=== PATIENT | male | born 1965 | race Caucasian/White ===

== ENCOUNTER 2018-07-06 17:30 | Outpatient (RCR) | payer BC, SELFPAY ==
--- NOTE | 2018-06-10 17:06 | HMH.PTOPEV ---
PT Outpatient Evaluation Rehab PT Outpatient Evaluation Start: 06/10/18 16:51 Freq: Status: Active Protocol: Document 06/10/18 16:52 MICHAEL (Rec: 06/10/18 17:06 MICHAEL [id number]) Electronically Signed By Juliano Cameron PT 06/10/18 16:52 Outpatient Therapy Subjective History Subjective History THis is the initial Physical Therapy evaluation for Dakota Santiago. Pt is a 53 y/o male referred to PT for R achilles pain. Pt reports he had surgery in Jul to remove bone spur on R posterior calcaneus. Pt reports detachment of achilles , resection of bone spur and re-attachment of tendon. Pt reports 1 month casted and two months CAM walking boot. Pt reports continued pain in heel since being out of boot. Chief Complaint Pain Stiff Swelling Symptom Type Ache Throb Sharp Burning Symptoms Relieved By Rest/Positioning Symptoms Aggravated By Standing Physical Activity Walking Prior Functional Limitations None Current Functional Limitations Housework Standing Recreation Activity Walking Stairs Symptom Description Intermittent Level of pain today (0-10) 0 Pain scale - at its best (0-10) 0 Pain scale - at its worst (0-10) 5 Ankle/Foot Eval Gait Observation General Gait Pattern Observation No Deviations/Normal Assistive Device Ambulation Assistive Device None Palpation Tenderness right Ankle/Foot Palpation Findings Tenderness Ankle/Foot Palpation Overall Comment TTP 1/4 at bo's insertion ATF TTP negative PTF TTP negative CF TTP negative Deltoid ligament TTP negative ROM bilateral Ankle/Foot ROM Reason Not Measured Within Functional Limits Special Tests Ankle Anterior Drawer Test Negative Left Negative Right Ankle Eversion Test Negative Left Negative Right Talar Tilt Test Negative Left Negative Right
== END 2018-07-06 17:31 | disposition home or self-care (01) ==
LOC: PT 17:30
PROVIDERS: PCP Internal Medicine Adolescent Medicine; Visit Provider Internal Medicine Adolescent Medicine
DX: M25.571 Pain in right ankle and joints of right foot (principal)
CPT/HCPCS: 97010; 97014; 97110; 97140; 97163; G0283

== ENCOUNTER → 2019-05-18 07:09 | Outpatient (CLI) | payer BC, SELFPAY ==
[2019-05-18 09:46] LABS: Alanine Aminotransferase 38 U/L (12-78); Albumin Level 3.7 gm/dL (3.4-5.0); Albumin/Globulin Ratio 1.2 (1.1-1.8); Alkaline Phosphatase 47 U/L (46-116); Anion Gap 11.4 mEq/L (5-15); Aspartate Amino Transferase 16 U/L (15-37); Bilirubin,Total 0.6 mg/dL (0.2-1.0); Blood Urea Nitrogen 20 mg/dL (7-18); Calcium 9.3 mg/dL (8.5-10.1); Carbon Dioxide 32 mmol/L (21.0-32.0); Chloride 103 mmol/L (98-107); Chol/HDL Ratio 4.6 (1-3.5); Cholesterol 176 mg/dL (140-200); Creatinine,Serum 1.01 mg/dL (0.70-1.30); Estimated Glomerular Filt Rate 77 ml/min (>60); GFR (African American) 93 ML/MIN (>60); Globulin 3.2 gm/dl (1.3-3.2); Glucose 98 mg/dL (74-106); HDL Cholesterol 38 mg/dL (27-67); LDL Cholesterol 120 mg/dL (0-130); Potassium 4.4 mmoL/L (3.5-5.1); Sodium 142 mmol/L (136-145); Total Protein,Serum 6.9 gm/dL (6.4-8.2); Triglycerides 88 mg/dL (30-200); VLDL Cholesterol 18 mg/dL (0-40)
== END ==
PROVIDERS: Visit Provider Internal Medicine Adolescent Medicine
DX: I10 Essential (primary) hypertension (principal)
CPT/HCPCS: 36415; 80053; 80061

== ENCOUNTER → 2019-08-18 08:12 | Outpatient (POV) | payer BC, SELFPAY | PROVIDERS: Visit Provider Dentist | DX: Z00.00 Encounter for general adult medical examination without abnormal findings (principal) ==

== ENCOUNTER → 2019-12-22 07:20 | Outpatient (CLI) | payer SELFPAY ==
--- NOTE | 2019-12-22 08:00 | CT_ITS ---
PROCEDURE: CT HEART W CALCIUM SCORE CLINICAL HISTORY: SCREENING Family history of heart disease COMPARISON: No exams were available for comparison TECHNIQUE: Axial images obtained with sagittal and coronal reformats. All CT scans at the facility use one or more dose reduction, viz: automated exposure control, ma/kV adjustment per patient size (including targeted exams where dose is matched to indication, i.e. head), or iterative reconstruction technique. FINDINGS: Coronary artery calcium score is 6 indicating minimal calcific plaque burden with low cardiovascular disease risk. Incidental note made partially calcified mediastinal and hilar lymph nodes with elevated left hemidiaphragm and minimal thickening of the pericardium. Atelectatic or fibrotic changes are present in the lung bases IMPRESSION: Minimal plaque burden with low cardiovascular disease risk Dictated by: Lance Nance MD 12/22/2019 15:33 Electronically signed by Lance Nance MD in [place] 12/22/2019 15:33
== END ==
PROVIDERS: PCP Internal Medicine Adolescent Medicine; Visit Provider Internal Medicine Cardiovascular Disease
DX: Z13.6 Encounter for screening for cardiovascular disorders (principal)
CPT/HCPCS: 75571

== ENCOUNTER → 2020-05-22 08:49 | Outpatient (CLI) | payer BC, SELFPAY ==
[2020-05-23 13:16] LABS: Covid-19 Nasal PCR Sendout Lex Not Detected
== END ==
PROVIDERS: Visit Provider Internal Medicine Adolescent Medicine
DX: Z20.828 Contact with and (suspected) exposure to other viral communicable diseases (principal)
CPT/HCPCS: U0004

== ENCOUNTER → 2020-06-22 15:29 | Outpatient (CLI) | payer BC, SELFPAY ==
[2020-06-22 16:06] LABS: Basophils # 0.1 K/mm3 (0-0.2); Eosinophils # 0.4 K/mm3 (0.0-0.4); Eosinophils % 4.4 % (0.1-12.0); Hematocrit 44.6 % (42.0-52.0); Hemoglobin 15.3 g/dL (14.1-18.0); Lymphocytes # 3.2 K/mm3 (0.7-4.5); Mean Corpuscular HGB Conc 34.3 g/dL (31.8-35.4); Mean Corpuscular Hemoglobin 29.8 pg (27.0-31.2); Mean Corpuscular Volume 86.9 fl (80-94); Mean Platelet Volume 7.6 fl (7.4-10.4); Monocytes # 0.5 K/mm3 (0.1-1.0); Monocytes % 5.4 % (1.7-9.3); Neutrophils # 5.4 K/mm3 (1.8-7.8); Neutrophils % 56.2 % (37.0-80.0); Platelet Count 224 K/mm3 (142-424); Red Blood Count 5.14 M/mm3 (4.60-6.20); Red Cell Distribution Width 14.5 % (11.5-17.5); White Blood Count 9.7 K/mm3 (4.8-10.8)
[2020-06-22 17:07] LABS: Alanine Aminotransferase 33 U/L (12-78); Albumin Level 4.4 g/dl (3.5-5.0); Albumin/Globulin Ratio 1.4 (1.1-1.8); Alkaline Phosphatase 58 U/L (38-126); Aspartate Amino Transferase 36 U/L (17-59); Bilirubin,Total 0.3 mg/dl (0.2-1.3); Blood Urea Nitrogen 18 mg/dl (9-20); Calcium 9.6 mg/dl (8.4-10.2); Carbon Dioxide 33 mmol/L (22.0-30.0); Chloride 98 mmol/L (98-107); Chol/HDL Ratio 4.6 (1-3.5); Cholesterol 198 mg/dl (140-200); Estimated Glomerular Filt Rate 69 ml/min (>60); GFR (African American) 84 ML/MIN (>60); Globulin 3.2 g/dL (1.3-3.2); Glucose 106 mg/dl (74-100); HDL Cholesterol 43 mg/dl (40-60); Sodium 141 mmol/L (136-145); Total Protein,Serum 7.6 g/dl (6.3-8.2); Triglycerides 281 mg/dl (30-150); VLDL Cholesterol 56 mg/dL (0-40)
[2020-06-22 17:17] LABS: Direct LDL Cholesterol 118.79 mg/dL (100-129)
[2020-06-22 17:49] LABS: Hemoglobin A1C 5.6 % (4.0-6.0)
== END ==
PROVIDERS: Visit Provider Internal Medicine Adolescent Medicine
DX: I10 Essential (primary) hypertension (principal)
CPT/HCPCS: 36415; 80053; 80061; 83036; 85025

== ENCOUNTER → 2020-11-27 08:04 | Outpatient (POV) | payer BC, SELFPAY | PROVIDERS: Visit Provider Dermatology | DX: Z00.00 Encounter for general adult medical examination without abnormal findings (principal) ==

== ENCOUNTER → 2021-05-29 07:01 | Outpatient (CLI) | payer BC, SELFPAY ==
[2021-05-29 07:56] LABS: Alanine Aminotransferase 32 U/L (12-78); Albumin Level 4.3 g/dl (3.5-5.0); Albumin/Globulin Ratio 1.5 (1.1-1.8); Alkaline Phosphatase 55 U/L (38-126); Anion Gap 12.9 mEq/L (5-15); Aspartate Amino Transferase 32 U/L (17-59); Bilirubin,Total 0.6 mg/dl (0.2-1.3); Blood Urea Nitrogen 21 mg/dl (9-20); Calcium 9.3 mg/dl (8.4-10.2); Carbon Dioxide 32 mmol/L (22.0-30.0); Chloride 103 mmol/L (98-107); Chol/HDL Ratio 4.7 (1-3.5); Cholesterol 179 mg/dl (140-200); Estimated Glomerular Filt Rate 100 ml/min (>60); GFR (African American) 121 ML/MIN (>60); Globulin 2.8 g/dL (1.3-3.2); Glucose 98 mg/dl (74-100); HDL Cholesterol 38 mg/dl (40-60); Potassium 4.9 mmoL/L (3.5-5.1); Sodium 143 mmol/L (136-145); Total Protein,Serum 7.1 g/dl (6.3-8.2); Triglycerides 96 mg/dl (30-150); VLDL Cholesterol 19 mg/dL (0-40)
[2021-05-29 08:07] LABS: Direct LDL Cholesterol 111.89 mg/dL (100-129)
[2021-05-29 08:08] LABS: Basophils # 0.1 K/mm3 (0-0.2); Eosinophils # 0.3 K/mm3 (0.0-0.4); Eosinophils % 4.2 % (0.1-12.0); Hematocrit 44.1 % (42.0-52.0); Hemoglobin 14.7 g/dL (14.1-18.0); Lymphocytes # 2.5 K/mm3 (0.7-4.5); Lymphocytes % 31.2 % (10-50); Mean Corpuscular HGB Conc 33.3 g/dL (31.8-35.4); Mean Corpuscular Hemoglobin 28.2 pg (27.0-31.2); Mean Corpuscular Volume 84.7 fl (80-94); Mean Platelet Volume 7.7 fl (7.4-10.4); Monocytes # 0.5 K/mm3 (0.1-1.0); Monocytes % 6.2 % (1.7-9.3); Neutrophils # 4.6 K/mm3 (1.8-7.8); Neutrophils % 57.3 % (37.0-80.0); Platelet Count 212 K/mm3 (142-424); Red Cell Distribution Width 14.5 % (11.5-17.5)
[2021-05-29 08:23] LABS: Coronavirus 19 IgG Antibody Negative (Negative); Coronavirus 19 IgM Antibody Negative (Negative)
[2021-05-29 11:42] LABS: Hemoglobin A1C 5.7 % (4.0-6.0)
== END ==
PROVIDERS: Visit Provider Internal Medicine Adolescent Medicine
DX: Z00.00 Encounter for general adult medical examination without abnormal findings (principal); Z20.822 Contact with and (suspected) exposure to COVID-19
CPT/HCPCS: 36415; 80053; 80061; 83036; 85025; 86328

== ENCOUNTER 2021-06-30 13:19 | Emergency (ER) | payer BC, SELFPAY ==
[2021-06-30 14:20] VITALS: BP 132/82; PULSE 86; RESP 17; TEMP 37; O2SAT 98; BMI 43.4
[2021-06-30 14:59] VITALS: BP 132/82; PULSE 86; RESP 17; TEMP 37; O2SAT 98
--- NOTE | 2021-06-30 14:59 | HMH.EDUTC ---
[facility] [place] [place] Disposition Clinical Impression: COVID-19 virus test result unknown Disposition: Home, Self-Care Condition on Discharge: Good Instructions: How to Care for Someone with COVID-19, Preventing the Spread of Coronavirus Discharge Instructions Additional Instructions: covid swab was sent to lab, call later today for results. self isolate until test results are known to be negative Referrals: Jose David Easley MD [Primary Care Provider] - Time of Disposition: 15:01 Medical Decision Making - Yahir Inquiry Pt receiving controlled substance: No Vital Signs: 06/30/21 14:20 Temperature 98.6 F Temperature Source Oral Pulse Rate [Right Brachial] 86 Respiratory Rate 17 Blood Pressure [Right Arm] 132/82 Blood Pressure Mean [Right Arm] 98 Blood Pressure Source [Right Arm] Automatic Cuff Blood Pressure Position [Right Arm] Sitting 02 Sat by Pulse Oximetry 98 Oxygen Delivery Method Room Air Orders (Tests/Meds): ORDERS Category Date Time Status Covid-19 Nasal PCR ([facility]) Routine Lab 06/30/21 14:[address] [facility] [place] HPI - General Chief complaint: Urgent Treatment Center Stated complaint: covid test Time Seen by Provider: 06/30/21 15:00 Mode of Arrival: Ambulatory Source of Information: Patient Limitations: No Limitations Description of Symptoms (Recalled from Triage Doc. by RN): COVID TEST, DENIES SYMPTOMS HEENT Symptoms (Recalled from RN notes): No Resp Symptoms (Recalled from RN notes): No Skin Symptoms (Recalled from RN notes): No MS Symptoms (Recalled from RN notes): No Functional Status (Recalled from RN notes): WNL - History of Present Illness Provider Complaint: 56 yr old male presents for covid test. has symptoms pt denies symptoms - Related Data Home Medications Medication Instructions Recorded Confirmed Aspirin 81 mg PO DAILY 09/05/18 09/04/20 Losartan/Hydrochlorothiazide 1 each PO DAILY 09/05/18 09/04/20 [Losartan-Hctz 100-25 mg Tab] Allergies Allergy/AdvReac Type Severity Reaction Status Date / Time Penicillins Allergy Unknown Verified 09/04/20 15:20 - Worker's Comp Is this a Worker's Comp case?: No [facility] History - Hepatitis A Screen Drug use history?: No High risk sexual behaviors?: No History of sexually transmitted infection?: No Currently employed?: No Childcare worker?: No Do you have indoor plumbing?: Yes Do you have electricity?: Yes Attestation statement:: This patient has been screened for Hepatitis A risk factors. I have reviewed the patient's past medical history: Yes Medical History: Reports:: Hypertension Denies:: Diabetes Mellitus Type 1, Diabetes Mellitus Type 2 Amputation: No Fractures: No Comment: Bilateral Plantar Fascia Release: Left 4 years ago, Right 2 Years ago - Social History Smoking Status: Never smoker Alcohol Intake: never Alcohol Intake Frequency:: other Occupational Status: employed Family Hx:: Diabetes, Hypertension, Hyperlipidemia ROS Obtained: Yes Systems reviewed as appropriate & no additional complaints - Constitutional Constitutional: Reports system reviewed and no additional complaints, except as docu, Denies fever(s) - Eyes Eyes: Reports system reviewed and no additional complaints, except as docu, Denies change in vision - ENT Ears, Nose, Mouth, and Throat: Reports system reviewed and no additional complaints, except as docu, Denies sore throat - Cardiovascular Cardiovascular: Reports system reviewed and no additional complaints, except as docu, Denies chest pain at rest - Respiratory Respiratory: Reports system reviewed and no additional complaints, except as docu, Denies change in phlegm color - Gastrointestinal Gastrointestingal: Reports: system reviewed and no additional complaints, except as docu. Denies: abdominal pain - Genitourinary Male Genitourinary: Reports system reviewed and no additional complaints, except as docu - Musculoskeletal Musculoskeletal: Reports system reviewed and no additi
== END 2021-06-30 15:06 | disposition home or self-care (01) ==
PROVIDERS: Emergency Provider Nurse Practitioner Family; PCP Internal Medicine Adolescent Medicine
DX: Z20.822 Contact with and (suspected) exposure to COVID-19 (principal); I10 Essential (primary) hypertension; Z88.0 Allergy status to penicillin
CPT/HCPCS: 99202; G0463; U0003

== ENCOUNTER → 2022-11-07 13:58 | Outpatient (CLI) | payer BC, SELFPAY | PROVIDERS: PCP Internal Medicine Adolescent Medicine; Visit Provider Specialist | DX: G47.33 Obstructive sleep apnea (adult) (pediatric) (principal); R06.83 Snoring | CPT/HCPCS: G0399 ==

== ENCOUNTER → 2022-12-04 13:24 | Outpatient (CLI) | payer BC, OTHER, SELFPAY | PROVIDERS: PCP Internal Medicine Adolescent Medicine; Visit Provider Specialist | DX: G47.33 Obstructive sleep apnea (adult) (pediatric) (principal) | CPT/HCPCS: 94762 ==

== ENCOUNTER → 2023-02-18 15:55 | Outpatient (CLI) | payer BC, OTHER, SELFPAY ==
--- NOTE | 2023-02-18 15:59 | MR_ITS ---
PROCEDURE INFORMATION: Exam: MR Cervical Spine Without Contrast Exam date and time: 02/18/2023 4:05 PM Age: 57 years old Clinical indication: Neck pain; Additional info: Cervical radiculopathy. Left shoulder an neck pain x 2 weeks. TECHNIQUE: Imaging protocol: Magnetic resonance imaging of the cervical spine without contrast. COMPARISON: CT HEART W CALCIUM SCORE 12/22/2019 7:42 AM FINDINGS: Bones/joints: No fracture. Normal alignment. Spinal cord: Normal signal. C2-C3: Central protrusion at C2-C3 with widely patent neural foramina. C3-C4: Central protrusion at C3-C4 with widely patent neural foramina. C4-C5: No significant disc bulge or herniation. No severe spinal canal stenosis. No significant neural foraminal narrowing. C5-C6: Broad-based disc bulge at C5-C6 abutting the ventral thecal sac causing mild canal and bilateral foraminal narrowing. C6-C7: Broad-based disc bulge at C6-C7 mildly eccentric to the right causing mild right greater than left lateral recess and foraminal narrowing. C7-T1: Disc bulge at C7-T1 with right paracentral protrusion abutting the ventral thecal sac causing high-grade stenosis of the right lateral recess and moderate stenosis of the neural foramen. Soft tissues: Unremarkable. Vasculature: Expected flow voids in the vertebral arteries. IMPRESSION: Multilevel degenerative changes most prominent at C5-C6 and C7-T1 as described above.
== END ==
PROVIDERS: PCP Internal Medicine Adolescent Medicine
DX: M54.12 Radiculopathy, cervical region (principal)
CPT/HCPCS: 72141; 76376

== ENCOUNTER → 2023-04-14 12:39 | Outpatient (CLI) | payer BC, OTHER, SELFPAY ==
--- NOTE | 2023-04-14 | CA_ITS ---
FINAL REPORT TECHNIQUE: Compression lake scale and Doppler evaluation CLINICAL HISTORY: SWELLING X 2 WEEKS WITHOUT INJURY, OBESITY FINDINGS: Femoral and popliteal veins show normal compressibility and flow. Visualized portion of the calf veins are patent by Doppler exam. IMPRESSION: No evidence of right lower extremity deep venous thrombosis Reviewed, Interpreted and Dictated by Melissa Álvarez MD Transcribed by Aurelia Gomez Authenticated and [facility]
== END ==
PROVIDERS: PCP Internal Medicine Adolescent Medicine; Visit Provider Internal Medicine Adolescent Medicine
DX: R60.0 Localized edema (principal)
CPT/HCPCS: 93971

== ENCOUNTER → 2023-06-24 21:27 | Outpatient (CLI) | payer BC, OTHER, SELFPAY | PROVIDERS: PCP Internal Medicine Adolescent Medicine; Visit Provider Nurse Practitioner Family | DX: L60.0 Ingrowing nail (principal); B96.5 Pseudomonas (aeruginosa) (mallei) (pseudomallei) as the cause of diseases classified elsewhere | CPT/HCPCS: 87070; 87077; 87186; 87205 ==

== ENCOUNTER 2023-07-07 16:00 | Outpatient (RCR) | payer BC, OTHER, SELFPAY | END 2023-07-07 16:05 | disposition home or self-care (01) | LOC: PT 16:00 | PROVIDERS: PCP Internal Medicine Adolescent Medicine; Visit Provider Student in an Organized Health Care Education/Training Program | DX: M54.2 Cervicalgia (principal); M54.12 Radiculopathy, cervical region | CPT/HCPCS: 97010; 97014; 97035; 97110; 97112; 97140; 97163; 97164; 97530; G0283 ==

== ENCOUNTER → 2024-03-07 09:14 | Outpatient (CLI) | payer BC, OTHER, SELFPAY | LOC: SL 09:15 | PROVIDERS: PCP Internal Medicine Adolescent Medicine; Visit Provider Specialist | DX: G47.33 Obstructive sleep apnea (adult) (pediatric) (principal) | CPT/HCPCS: 94762 ==

== ENCOUNTER 2024-03-21 15:03 | Outpatient (CLI) | payer BC, OTHER, SELFPAY ==
[2024-03-21 16:22] LABS: Prostate Specific Ag Screen 7.5 ng/ml (0.0-4.0)
[2024-03-23 14:13] LABS: PSA, Free 1.17 ng/mL; Prostate Specific Ag 7.1 ng/mL (0.0-4.0)
== END 2024-03-21 23:59 | disposition home or self-care (01) ==
LOC: LAB 15:03
PROVIDERS: PCP Internal Medicine Adolescent Medicine; Visit Provider Urology
DX: R97.20 Elevated prostate specific antigen [PSA] (principal); N40.2 Nodular prostate without lower urinary tract symptoms; Z12.5 Encounter for screening for malignant neoplasm of prostate
CPT/HCPCS: 36415; 84153; 84154; G0103

== ENCOUNTER 2024-04-08 08:35 | Day surgery (SDC) | payer BC, OTHER, SELFPAY ==
[2024-04-06 11:47] VITALS: BMI 38.7
--- NOTE | 2024-04-08 08:49 | HMH.SCOPE ---
Procedure: Date: 04/08/24 Patient Date of :: 1965 Procedure Performed:: Total colonoscopy with polypectomy using biopsy and cold snare Indications:: Patient is a 59-year-old male who presents for scheduled screening colonoscopy. He has a family history of colon cancer in his grandfather. He states that he has had 3 prior colonoscopies. I am unable to see any record of any previous colonoscopy at this facility at this time. He believes the last 1 was at [facility] with Dr. Thompson. 5-year follow-up was recommended. . Performing Provider:: Brandon Lala MD Referring Provider:: Jose David Easley MD . Sedation:: MAC sedation Procedure:: Patient history was obtained and appropriate physical examination was performed. Patient's medications and allergies were reviewed. Informed consent was obtained after explaining the benefits, alternatives, and risks of the procedure including, but not limited to, bleeding, perforation, missed lesions, and adverse reaction to anesthesia medications. Patient was transported to endoscopy procedure room. Patient was connected to monitoring devices. Throughout the procedure the patient's blood pressure, pulse, and oxygen saturations were monitored continuously. Patient identification and planned procedure were verified by the staff. Patient was positioned in lateral decubitus position. Digital anorectal exam was performed. Variable stiffness Olympus colonoscope was inserted and advanced under direct visualization to the cecum. Adequacy of the colonic preparation was noted. The colonoscope was advanced a short distance into the ileocecal valve. The colonoscope was then slowly withdrawn while carefully examining the color, texture, anatomy, and integrity of the mucosoa circumferentially. Within the rectum retroflexion was performed. Colonoscope was then withdrawn. Impression: Colonic preparation was fair. High-volume trans colonoscopic irrigation and suctioning was performed which allowed for decent visualization however there was some vegetable matter and some stool which was unable to be fully cleared. Within the cecum there was a small diminutive adenomatous polyp removed in a piecemeal fashion using cold biopsy forceps. There was significant pandiverticulosis with multiple larg[place] diverticuli particularly in the sigmoid colon. In the descending colon there was a possible subtle ridge polyp. This was removed with cold cutting snare. This may be merely prolapsed polyp. Retroflexion within the rectum revealed findings of possible rectocele versus communicating large diverticulum in the distal rectum. Colonoscope was withdrawn. . Findings:: Fair prep Significant pandiverticulosis Diminutive cecal polyp Subtle descending polyp Possible rectocele . Recommendations:: Repeat colonoscopy pending pathology. I will see if I can obtain previous records. Likely repeat colonoscopy 3 years given family history, polyps, suboptimal preparation. Complications:: None immediately apparent Estimated blood obtained (mL): 1 Colonoscopy Component Colonoscopy Component Was a colonoscopy performed during today's procedure?: Yes Recommended follow up colonoscopy of at least 10 years?: No If no, follow up colonoscopy recommended in ___ years?: 3 Reason for not recommending >/= 10 yr follow-up interval?: See above
[2024-04-08 08:53] VITALS: BP 109/76; PULSE 85; RESP 18; TEMP 36.4; O2SAT 96
[2024-04-08 09:05] VITALS: O2SAT 99
[2024-04-08 09:05] LABS: POC Glucose,Bedside 91 (70-110)
--- NOTE | 2024-04-08 09:07 | P.PNANES_ITS ---
[facility] Disclaimer: The information contained in this section may have been updated after the patient was seen, as this information can be updated by other users. Medical History Enlarged prostate History of trigger finger History of COVID-19 Diabetes mellitus, type 2 Allergies Hypertension EVELIO (obstructive sleep apnea) Surgical History History of carpal tunnel surgery History of ankle surgery Family History Other Cancer Coronary artery disease Diabetes Social History Smoking Status: Former smoker alcohol intake: never substance use type: denies use current occupational status: employed Travel in the last 8 weeks: None household members: spouse housing: house marital status: [facility] Anesthesia Checklist Patient Identification Patient Identification: Arm Band Structural Data Admitted From: Home Planned Operative Procedure/s: Colonoscopy Consent for Planned Operative Procedure(s) Verified: Yes Verified Documents: Surgical Consent and History and Physical NPO Status Verified Time NPO: 00:00 Additional verifications Anesthesia Reactions: No Airway Assessment Mallampati Score:: Class II C-Spine Mobility Assessed: Yes TMJ Mobility Assessed: Yes Dentition: Good Dentition Neurological Assessment Level of Consciousness: Awake, Alert and Appropriate Anesthesia Plan Anesthesia Risk discussed: Yes Anesthesia Plan: Verified ASA Class: III Anesthesia Type: MAC
[2024-04-08 09:55] VITALS: BP 95/66; PULSE 85; RESP 16; TEMP 36.6; O2SAT 94
[2024-04-08 10:05] VITALS: BP 99/63; PULSE 79; RESP 16; O2SAT 93
[2024-04-08 10:15] VITALS: BP 108/76; PULSE 79; RESP 16; O2SAT 94
[2024-04-08 10:20] VITALS: BP 107/78; PULSE 78; RESP 16; O2SAT 94
== END 2024-04-08 10:22 | disposition home or self-care (01) ==
PROVIDERS: PCP Internal Medicine Adolescent Medicine; Visit Provider Surgery
PROC: 0DJD8ZZ Inspection of Lower Intestinal Tract, Via Natural or Artificial Opening Endoscopic (ICD-10-PCS; CPT 45385; principal; 2024-04-08 09:30)
DX: Z12.11 Encounter for screening for malignant neoplasm of colon (principal); Z80.0 Family history of malignant neoplasm of digestive organs; D12.0 Benign neoplasm of cecum; K63.5 Polyp of colon; K57.90 Diverticulosis of intestine, part unspecified, without perforation or abscess without bleeding
CPT/HCPCS: 45385; 45380; 82962; J2704

== ENCOUNTER 2024-10-04 07:02 | Outpatient (CLI) | payer BC, OTHER, SELFPAY ==
[2024-10-04 07:28] LABS: Basophils # 0.1 K/mm3 (0-0.2); Basophils % 0.8 % (0.1-2.0); Eosinophils # 0.3 K/mm3 (0.0-0.4); Eosinophils % 3.3 % (0.1-12.0); Hematocrit 50.3 % (42.0-52.0); Hemoglobin 16.6 g/dL (14.1-18.0); Lymphocytes # 2.2 K/mm3 (0.7-4.5); Lymphocytes % 25.5 % (10-50); Mean Corpuscular HGB Conc 33.1 g/dL (31.8-35.4); Mean Corpuscular Hemoglobin 28.9 pg (27.0-31.2); Mean Corpuscular Volume 87.4 fl (80-94); Mean Platelet Volume 7.6 fl (7.4-10.4); Monocytes # 0.6 K/mm3 (0.1-1.0); Monocytes % 6.7 % (1.7-9.3); Neutrophils # 5.6 K/mm3 (1.8-7.8); Neutrophils % 63.7 % (37.0-80.0); Platelet Count 219 K/mm3 (142-424); Red Blood Count 5.75 M/mm3 (4.60-6.20); Red Cell Distribution Width 14.4 % (11.5-17.5); White Blood Count 8.7 K/mm3 (4.8-10.8)
[2024-10-04 08:19] LABS: Alanine Aminotransferase 35 U/L (12-78); Albumin Level 4.5 g/dl (3.5-5.0); Albumin/Globulin Ratio 1.9 (1.1-1.8); Alkaline Phosphatase 49 U/L (38-126); Anion Gap 12.9 mEq/L (5-15); Aspartate Amino Transferase 27 U/L (17-59); Bilirubin,Total 0.8 mg/dl (0.2-1.3); Blood Urea Nitrogen 17 mg/dl (9-20); Calcium 9.6 mg/dl (8.4-10.2); Carbon Dioxide 28 mmol/L (22.0-30.0); Chloride 102 mmol/L (98-107); Chol/HDL Ratio 3.6 (1-3.5); Cholesterol 190 mg/dl (140-200); Estimated Glomerular Filt Rate 86 ml/min (>60); GFR (African American) 105 ML/MIN (>60); Globulin 2.4 g/dL (1.3-3.2); Glucose 93 mg/dl (74-100); HDL Cholesterol 53 mg/dl (40-60); Potassium 3.9 mmoL/L (3.5-5.1); Sodium 139 mmol/L (136-145); Total Protein,Serum 6.9 g/dl (6.3-8.2); Triglycerides 132 mg/dl (30-150); VLDL Cholesterol 26 mg/dL (0-40)
[2024-10-04 08:30] LABS: Direct LDL Cholesterol 108.76 mg/dL (100-129)
[2024-10-04 08:37] LABS: Free Thyroxine Index 3.5 ug/dL (5.93-13.13); T4 (Thyroxine) 12.4 ug/dl (5.53-11.0); Triiodothryronine (T3) Uptake 28 % (23.5-40.5)
[2024-10-04 08:50] LABS: Thyroid Stimulating Hormone 1.85 uIU/mL (0.465-4.68)
[2024-10-04 09:43] LABS: Hemoglobin A1C 5.2 % (4.0-6.0)
[2024-10-06 08:32] LABS: PSA, Free 0.65 ng/mL
== END 2024-10-04 23:59 | disposition home or self-care (01) ==
LOC: LAB 07:03
PROVIDERS: PCP Internal Medicine Adolescent Medicine; Visit Provider Internal Medicine Adolescent Medicine
DX: R09.A2 Foreign body sensation, throat (principal); C61 Malignant neoplasm of prostate; E11.69 Type 2 diabetes mellitus with other specified complication; R97.20 Elevated prostate specific antigen [PSA]; N40.2 Nodular prostate without lower urinary tract symptoms; Z79.84 Long term (current) use of oral hypoglycemic drugs; Z79.85 Long-term (current) use of injectable non-insulin antidiabetic drugs
CPT/HCPCS: 36415; 80050; 80053; 80061; 83036; 84153; 84154; 84436; 84443; 84479; 85025

== ENCOUNTER 2024-12-08 16:00 | Outpatient (RCR) | payer BC, OTHER, SELFPAY | END 2024-12-08 23:59 | disposition home or self-care (01) | LOC: PT 16:00 | PROVIDERS: Visit Provider Orthopaedic Surgery | DX: M22.2X2 Patellofemoral disorders, left knee (principal); M25.462 Effusion, left knee | CPT/HCPCS: 97014; 97110; 97163; 97530; G0283 ==

== ENCOUNTER 2024-12-16 16:03 | Outpatient (RCR) | payer BC, OTHER, SELFPAY | END 2024-12-16 23:59 | disposition home or self-care (01) | LOC: PT 16:03 | PROVIDERS: Visit Provider Orthopaedic Surgery | DX: M17.12 Unilateral primary osteoarthritis, left knee (principal); M25.462 Effusion, left knee | CPT/HCPCS: 97014; 97110; 97530; G0283 ==

== ENCOUNTER 2025-03-07 13:00 | Outpatient (RCR) | payer BC, OTHER, SELFPAY | END 2025-03-07 23:59 | disposition home or self-care (01) | LOC: PT 13:00 | PROVIDERS: PCP Internal Medicine Adolescent Medicine; Visit Provider Orthopaedic Surgery | DX: M25.662 Stiffness of left knee, not elsewhere classified (principal); M25.462 Effusion, left knee; Z96.652 Presence of left artificial knee joint | CPT/HCPCS: 97110; 97140; 97163; 97530 ==

== ENCOUNTER 2025-04-06 13:00 | Outpatient (RCR) | payer BC, OTHER, SELFPAY | END 2025-04-06 23:59 | disposition home or self-care (01) | LOC: PT 13:00 | PROVIDERS: PCP Internal Medicine Adolescent Medicine; Visit Provider Orthopaedic Surgery | DX: Z47.89 Encounter for other orthopedic aftercare (principal); Z96.652 Presence of left artificial knee joint | CPT/HCPCS: 97016; 97110; 97140; 97164; 97530 ==

== ENCOUNTER 2025-04-25 16:00 | Outpatient (RCR) | payer BC, OTHER, SELFPAY | END 2025-04-25 23:59 | disposition home or self-care (01) | LOC: PT 16:00 | PROVIDERS: PCP Internal Medicine Adolescent Medicine; Visit Provider Orthopaedic Surgery | DX: Z47.89 Encounter for other orthopedic aftercare (principal); Z96.652 Presence of left artificial knee joint | CPT/HCPCS: 97016; 97110; 97530 ==